=== PATIENT | male | born 1970 | race Caucasian/White ===

== ENCOUNTER → 2016-12-18 | Outpatient (CLI) | payer OTHER ==
[~2016-12-18] MED LIST: AGG PO; ALBUAER2 INH; CLIN1LOT5 TOP; CMD5 PO; COEN1CAP32 PO; DEXT30TA7 PO; FEXO1TAB46 PO; FLUT0.15 NAE; GLC/500 PO; MONT1TAB3 PO; OMEG10007 PO; POLY335019 PO; PRLSR20 PO; TAMS0.4C38 PO; WARF7.5T4 PO; ZNTT/150 PO; [UNRECOGNIZED DRUG - OTHER] PO; [UNRECOGNIZED DRUG - OTHER] PO
[2016-12-18 12:47] LABS: ESTIMATED AVERAGE GLUCOSE 128 mg/dl; HA1C FLAG Normal (Normal)
[2016-12-18 13:16] LABS: ALT/SGPT 44 U/L (12-78); BLOOD UREA NITROGEN 15 mg/dl (7-18); BUN/CREATININE RATIO 19.3 (10-20); CARBON DIOXIDE 28 mmol/L (21-32); CHLORIDE 105 mmol/L (98-107); CHOLESTEROL 199 mg/dl (0-200); GLUCOSE 105 mg/dl (70-99); POTASSIUM 3.8 mmol/L (3.5-5.1); SODIUM 141 mmol/L (136-145)
[2016-12-18 13:19] LABS: ALKALINE PHOSPHATASE 87 U/L (45-117); AST/SGOT 27 U/L (15-37); CHOLESTEROL/HDL RATIO 4.5; HDL CHOLESTEROL 44 mg/dl; LDL CHOLESTEROL CALCULATED 131 mg/dl; TRIGLYCERIDES 122 mg/dl (0-150); VERY LOW DENSITY LIPOPROT CALC 24 mg/dl
== END | disposition home or self-care (01) ==
LOC: C.LABPVFM 08:20
PROVIDERS: ATTEND Nurse Practitioner
DX: I10 Essential (primary) hypertension (principal); E78.5 Hyperlipidemia, unspecified; R73.01 Impaired fasting glucose

== ENCOUNTER → 2017-06-04 | Outpatient (CLI) | payer OTHER ==
[2017-06-04 13:31] LABS: CHOLESTEROL/HDL RATIO 6.4
== END | disposition home or self-care (01) ==
LOC: C.LABPVFM 07:56
PROVIDERS: ATTEND Internal Medicine Cardiovascular Disease
DX: E78.5 Hyperlipidemia, unspecified (principal)

== ENCOUNTER → 2017-06-06 | Outpatient (CLI) | payer OTHER ==
[2017-06-06 18:40] LABS: LYME DISEASE AB IGG NEG (NEG); LYME DISEASE AB IGM NEG (NEG)
== END | disposition home or self-care (01) ==
LOC: C.LABPVFM 11:34
PROVIDERS: ATTEND Internal Medicine Cardiovascular Disease
DX: R53.83 Other fatigue (principal)

== ENCOUNTER → 2017-11-28 | Outpatient (CLI) | payer OTHER ==
[2017-11-28 18:01] LABS: BLOOD UREA NITROGEN 17 mg/dl (7-18); CALCIUM 9.1 mg/dl (8.5-10.1); CARBON DIOXIDE 29 mmol/L (21-32); CREATININE 0.93 mg/dl (0.60-1.40); GLUCOSE 83 mg/dl (70-99); POTASSIUM 3.7 mmol/L (3.5-5.1); SODIUM 139 mmol/L (136-145)
[2017-11-29 07:07] LABS: HEMOGLOBIN A1C 6.1 % (4.5-5.6)
== END | disposition home or self-care (01) ==
LOC: C.LABPVFM 14:52
PROVIDERS: ATTEND Nurse Practitioner
DX: R73.01 Impaired fasting glucose (principal); I10 Essential (primary) hypertension

== ENCOUNTER → 2017-12-08 | Outpatient (CLI) | payer OTHER ==
--- NOTE | 2017-12-08 09:02 | DIAGNOSTIC IMAGING REPORT ---
(BARIUM SWALLOW) ESOPHAGUS CLINICAL HISTORY: T17.308A [id number] COMPARISON STUDY: None FLUOROSCOPY TIME: 1.4 minutes. FINDINGS: Patient initiated swallowing function well. No evidence for aspiration. The esophagus is normal in course and caliber. Mild gastroesophageal reflux. The patient Ingested the barium tablet easily with passed easily to the stomach. IMPRESSION: Mild gastroesophageal reflux. Otherwise normal exam. The above report was generated using voice recognition software. It may contain grammatical, syntax or spelling errors. Electronically signed by: Dennys Simon M.D. 12/08/2017 9:01 AM Dictated Date/Time: 12/08/2017 8:51 AM
== END | disposition home or self-care (01) ==
LOC: C.RAD 08:06
PROVIDERS: ATTEND Nurse Practitioner
DX: R13.10 Dysphagia, unspecified (principal); T17.308A Unspecified foreign body in larynx causing other injury, initial encounter; X58.XXXA Exposure to other specified factors, initial encounter

== ENCOUNTER → 2018-01-21 | Day surgery (SDC) | payer OTHER ==
[2018-01-14 08:54] VITALS: BMI 43.0
[~2018-01-21] VITALS: Ht 175.3 cm; Wt 131.8 kg
[~2018-01-21] MED LIST changes: -AGG PO; -ALBUAER2 INH; +ASPCH81X PO; +CHOL20007 PO; -CLIN1LOT5 TOP; -COEN1CAP32 PO; +COEN400C5 PO; -FEXO1TAB46 PO; +FEXO1TAB49 PO; +IBUP-1459 PO; +KETO2GEL2 EXT; +LIDOCAINE HCL 2% 2 ML VIAL (20MG/ML) ONE; +MIDAZOLAM HCL 1 MG/ML 2ML VIAL ONE; +MISCTAB78 PO; -MONT1TAB3 PO; +MRLP17X PO; +MULT-506 PO; +ONDANSETRON INJ 2 MG/ML 2 ML VIAL ONE; -POLY335019 PO; +PROPOFOL IV EMULSION 10 MG/ML 20 ML VIAL IV ONE; +RANI150T3 PO; +SNG10 PO; +SODIUM CHLORIDE 0.9% 500ML 500 ML IV ONE; +VNTHFA/IN INH; -ZNTT/150 PO; -[UNRECOGNIZED DRUG - OTHER] PO; -[UNRECOGNIZED DRUG - OTHER] PO
[2018-01-21 12:43] VITALS: Ht 175.3 cm; Wt 131.8 kg
--- NOTE | 2018-01-21 12:46 | Endo History and Physical ---
History & Physical Date of Service: Jan 21, 2018. Chief Complaint: Dysphagia Referring Physician: Stephenie Jalloh History of Present Illness 47 yo CM who presents for EGD secondary to dysphagia. Past Medical History Arthritis, Reflux, High Cholesterol, Sleep Apnea, Heart Disease, CVA/TIA Past Surgical History Hx Cardiac Surgery: No Hx Internal Defibrillator: No Hx Pacemaker: No Hx Abdominal Surgery: No Hx of Implantable Prosthesis: No Hx Post-Op Nausea and Vomiting: No Hx Cancer Surgery: No Hx Thoracic Surgery: No Hx Orthopedic: Yes (LEFT CTR, LEFT WRIST SX, LEFT KNEE ARTHROPLASTY, LEFT SHOULDER/BICEP REPAIR) Hx Urinary Tract Surgery: No Family History Colon CA Social History Smoking Status: Never Smoker Hx Substance Use: No Hx Alcohol Use: No Allergies Coded Allergies: NO KNOWN DRUG ALLERGIES (Verified Allergy, Unknown, ., 01/21/18) Zinc (Verified Allergy, Unknown, COLORS SKIN ON CONTACT, 01/21/18) Uncoded Allergies: MAPLE TREES (Allergy, Unknown, SNEEZING, 10/21/16) Current Medications Reported Home Medications Medications Dose Route/Sig Max Daily Dose Days Date Category Dose Instructions Xolegel (Ketoconazole (Topical)) 2 % Gel 1 Dose EXT DIRECTED PRN 01/14/18 Reported Aspirin Chewable (Aspirin) 81 Mg Chew 81 Mg PO BID 01/14/18 Reported Flonase Allergy Relief (Fluticasone Propionate (Nasal)) 50 Mcg/Act Spr 1 [place] SIENA DAILY PRN 01/14/18 Reported Glucophage (Metformin Hcl) 500 Mg Tab 500 Mg PO BID 01/14/18 Reported Prilosec (Omeprazole) 20 Mg Capcr 20 Mg PO BID 01/14/18 Reported Flomax (Tamsulosin Hcl) 0.4 Mg Cap 0.4 Mg PO HS 01/14/18 Reported Vitamin D3 (Cholecalciferol) 2,000 Unit Tab 1 Tab PO Q2D 01/14/18 Reported Ventolin Hfa (Albuterol) 200 Puffs/99616 Mcg Aers 2-4 Puffs INH Q6H PRN 01/14/18 Reported Montelukast Sodium (Montelukast Sod) 10 Mg Tab 1 Tab PO QPM 01/14/18 Reported Multivitamin (Multivitamins) Tab 1 Tab PO QAM 01/14/18 Reported Mucinex Dm (Dextromethorphan-Guaifenesin) 1 Tab Tab 1 Tab PO Q12 01/14/18 Reported Motrin (Ibuprofen) 400 Mg Tab 400 Mg PO TID PRN 01/14/18 Reported PRN Osteo Bi-Flex Advanced Do (Misc Natural Products) 1 Tab Tab 2 Tab PO QAM 01/14/18 Reported Coq10 (Coenzyme Q10 (Ubidecarenone)) 400 Mg Cap 1 Cap PO QAM 01/14/18 Reported Zantac (Ranitidine HCl) 150 Mg Tab 150 Mg PO BID 01/14/18 Reported Miralax (Polyethylene) 17 Gm Pow 1 Dose PO DAILY PRN 01/14/18 Reported Sindi Allergy (Fexofenadine Hcl) 180 Mg Tab 1 Tab PO QAM 01/14/18 Reported [place]-3 (Fish Oil) 1 Ea Cap 1 Cap PO BID 01/14/18 Reported Jantoven (Warfarin Sodium) 7.5 Mg Tab 7.5 Mg PO 2XWK 05/10/16 Reported FRIDAY AND FRI. Coumadin (Warfarin Sod) 5 Mg Tab 5 Mg PO 5XWK 05/10/16 Reported Vital Signs Weight (Kilograms): 131.82 Height (Feet): 5 Height (Inches): 9 Physical Exam General Appearance: WD/WN, no apparent distress Respiratory/Chest: Auscultation: breath sounds normal Cardiovascular: Heart Auscultation: RRR Abdomen: Bowel Sounds: normal Inspection & Palpation: soft, non-distended, no tenderness, guarding & rebound Assessment and Plan Assessment: 47 yo CM who presents for EGD secondary to dysphagia. Plan: Proceed with EGD.
--- NOTE | 2018-01-21 14:17 | Discharge Instructions ---
Endoscopy Patient Instructions Date / Procedure(s) Performed Jan 21, 2018. EGD Allergy Information Coded Allergies: NO KNOWN DRUG ALLERGIES (Verified Allergy, Unknown, ., 01/21/18) Zinc (Verified Allergy, Unknown, COLORS SKIN ON CONTACT, 01/21/18) Uncoded Allergies: MAPLE TREES (Allergy, Unknown, SNEEZING, 10/21/16) Discharge Date / Findings Jan 21, 2018. Normal EGD Medication Instructions Stopped Medication(s): COMMADIN 01/17/18 Restart Stopped Medication(s): OK to restart all medications today as prescribed Reported Home Medications Medications Dose Route/Sig Max Daily Dose Days Date Category Dose Instructions Xolegel (Ketoconazole (Topical)) 2 % Gel 1 Dose EXT DIRECTED PRN 01/14/18 Reported Aspirin Chewable (Aspirin) 81 Mg Chew 81 Mg PO BID 01/14/18 Reported Flonase Allergy Relief (Fluticasone Propionate (Nasal)) 50 Mcg/Act Spr 1 [place] SIENA DAILY PRN 01/14/18 Reported Glucophage (Metformin Hcl) 500 Mg Tab 500 Mg PO BID 01/14/18 Reported Prilosec (Omeprazole) 20 Mg Capcr 20 Mg PO BID 01/14/18 Reported Flomax (Tamsulosin Hcl) 0.4 Mg Cap 0.4 Mg PO HS 01/14/18 Reported Vitamin D3 (Cholecalciferol) 2,000 Unit Tab 1 Tab PO Q2D 01/14/18 Reported Ventolin Hfa (Albuterol) 200 Puffs/05764 Mcg Aers 2-4 Puffs INH Q6H PRN 01/14/18 Reported Montelukast Sodium (Montelukast Sod) 10 Mg Tab 1 Tab PO QPM 01/14/18 Reported Multivitamin (Multivitamins) Tab 1 Tab PO QAM 01/14/18 Reported Mucinex Dm (Dextromethorphan-Guaifenesin) 1 Tab Tab 1 Tab PO Q12 01/14/18 Reported Motrin (Ibuprofen) 400 Mg Tab 400 Mg PO TID PRN 01/14/18 Reported PRN Osteo Bi-Flex Advanced Do (Misc Natural Products) 1 Tab Tab 2 Tab PO QAM 01/14/18 Reported Coq10 (Coenzyme Q10 (Ubidecarenone)) 400 Mg Cap 1 Cap PO QAM 01/14/18 Reported Zantac (Ranitidine HCl) 150 Mg Tab 150 Mg PO BID 01/14/18 Reported Miralax (Polyethylene) 17 Gm Pow 1 Dose PO DAILY PRN 01/14/18 Reported Sindi Allergy (Fexofenadine Hcl) 180 Mg Tab 1 Tab PO QAM 01/14/18 Reported [place]-3 (Fish Oil) 1 Ea Cap 1 Cap PO BID 01/14/18 Reported Jantoven (Warfarin Sodium) 7.5 Mg Tab 7.5 Mg PO 2XWK 05/10/16 Reported FRIDAY AND FRI. Coumadin (Warfarin Sod) 5 Mg Tab 5 Mg PO 5XWK 05/10/16 Reported Provider Instructions Activity Restrictions - No exercising or heavy lifting for 24 hours. - Do not drink alcohol the day of the procedure. - Do not drive a car or operate machinery until the day after the procedure. - Do not make any important decisions or sign important papers in 24 hours after the procedure. Following Day: - Return to full activity which may include returning to work/school. Diet Start your diet with liquids and light foods (jello, soup, juice, toast). Then eat your usual diet if not nauseated. Treatment For Common After Affects For mild abdominal pain, bloating, or excessive gas: - Rest - Eat lightly - Lie on right side Follow-Up Information Follow-up with DR. WARREN as scheduled Anesthesia Information What You Should Know You have had a procedure that required some medicine to reduce anxiety and discomfort. This treatment is called moderate sedation. After receiving the treatment, you may be sleepy, but you will be able to breathe on your own. The effects of the treatment may last for several hours. Follow these instructions along with Activity/Diet recommendations noted above: * Do NOT do anything where dizziness or clumsiness would be dangerous. * Rest quietly at home today, then you can be up and about tomorrow. * Have a responsible person stay with you the rest of today. * You may have had an I.V. today. If so, you may take the dressing off later today. Recommendations Call your doctor if: * Trouble breathing * Continuous vomiting for more than 24 hours * Temperature above 101 degrees * Severe abdominal pain or bloating * Pain not relieved by pain medicine ordered * There is increased drainage or redness from any incision * A large amount of rectal bleeding greater than 2-3 tablespoons. (If you had a polyp/s removed or have hemorrhoids, a small amount of blood - from the rectum is to be expected.) * You have any unanswered questions or concerns. IN THE EVENT OF A SERIOUS EMERGENCY, GO TO THE NEAREST EMERGENCY ROOM Your discharge instructions were prepared by provider Jeovanny Quintero. Patient Instructions Signature Page Hussein Andrade Patient (or Guardian) Signature/Date: I have read and understand the instructions given to me by my caregivers. Caregiver/RN/Doctor Signature/Date: The above-named patient and/or guardian has received patient instructions on this date. + Original Patient Signature Page (only) stays with chart. Please make copy for patient.
[2018-01-21 14:45] VITALS: BP 131/79; PULSE 76; O2SAT 92
--- NOTE | 2018-01-21 14:54 | Anesthesiology Progress Note ---
Anesthesia Post Op Note Date & Time Jan 21, 2018 at 14:54 Vital Signs Pain Intensity: 0 Vital Signs Past 12 Hours Date Time Temp Pulse Resp B/P (MAP) Pulse Ox O2 Delivery O2 Flow Rate FiO2 01/21/18 14:45 76 20 131/79 (96) 92 Room Air 01/21/18 14:30 78 20 133/81 (98) 94 Room Air 01/21/18 14:15 75 20 106/77 (87) 98 Mask 5 01/21/18 13:02 36.9 86 20 150/84 (106) 92 Room Air Notes Mental Status: alert / awake / arousable, participated in evaluation Pt Amnestic to Procedure: Yes Nausea / Vomiting: adequately controlled Pain: adequately controlled Airway Patency, RR, SpO2: stable & adequate BP & HR: stable & adequate Hydration State: stable & adequate Anesthetic Complications: no major complications apparent
--- NOTE | 2018-01-21 14:55 | GI REPORT ---
Procedure Date: 01/21/2018 1:24 PM Procedure: Upper GI endoscopy Indications: Dysphagia Medicines: Monitored Anesthesia Care Complications: No immediate complications. Estimated Blood Loss: Estimated blood loss: none. Procedure: Pre-Anesthesia Assessment: - Prior to the procedure, a History and Physical was performed, and patient medications and allergies were reviewed. The patient's tolerance of previous anesthesia was also reviewed. The risks and benefits of the procedure and the sedation options and risks were discussed with the patient. All questions were answered, and informed consent was obtained. Prior Anticoagulants: The patient last took aspirin 1 day and Coumadin (warfarin) 4 days prior to the procedure. ASA Grade Assessment: III - A patient with severe systemic disease. After reviewing the risks and benefits, the patient was deemed in satisfactory condition to undergo the procedure. After obtaining informed consent, the endoscope was passed under direct vision. Throughout the procedure, the patient's blood pressure, pulse, and oxygen saturations were monitored continuously. The scope was introduced through the mouth, and advanced to the second part of duodenum. The upper GI endoscopy was accomplished without difficulty. The patient tolerated the procedure well. Findings: The esophagus was normal. The stomach was normal. The examined duodenum was normal. Impression: - Normal esophagus. - Normal stomach. - Normal examined duodenum. - No specimens collected. Recommendation: - Resume previous diet. - Continue present medications. - No findings on this exam to explain patient's symptom of dysphagia. - Return to primary care physician as previously scheduled. Jeovanny Quintero, 01/21/2018 2:55:43 PM This report has been signed electronically. Note Initiated On: 01/21/2018 1:24 PM I attest to the content of the Intraoperative Record and orders documented therein, exceptions below
== END | disposition home or self-care (01) ==
LOC: C.GI 12:31
PROVIDERS: ATTEND Internal Medicine
DX: R13.10 Dysphagia, unspecified (principal); J45.909 Unspecified asthma, uncomplicated; E11.9 Type 2 diabetes mellitus without complications; I48.91 Unspecified atrial fibrillation; G47.33 Obstructive sleep apnea (adult) (pediatric); M19.90 Unspecified osteoarthritis, unspecified site; Z79.82 Long term (current) use of aspirin; Z79.01 Long term (current) use of anticoagulants; Z96.652 Presence of left artificial knee joint; Z80.0 Family history of malignant neoplasm of digestive organs

== ENCOUNTER → 2018-02-23 | Outpatient (CLI) | payer OTHER ==
[~2018-02-23] MED LIST changes: -LIDOCAINE HCL 2% 2 ML VIAL (20MG/ML) ONE; +METO50TA8 PO; -MIDAZOLAM HCL 1 MG/ML 2ML VIAL ONE; -ONDANSETRON INJ 2 MG/ML 2 ML VIAL ONE; -PROPOFOL IV EMULSION 10 MG/ML 20 ML VIAL IV ONE; -SODIUM CHLORIDE 0.9% 500ML 500 ML IV ONE
== END | disposition home or self-care (01) ==
LOC: C.LABSPEC 17:28
PROVIDERS: ATTEND Urology
DX: N20.0 Calculus of kidney (principal)

== ENCOUNTER → 2018-03-06 | Outpatient (CLI) | payer OTHER ==
[~2018-03-06] MED LIST changes: +HYDR-5688 PO
[2018-03-06 13:29] LABS: ALBUMIN 3.8 gm/dl (3.4-5.0); ALKALINE PHOSPHATASE 93 U/L (45-117); ALT/SGPT 51 U/L (12-78); AST/SGOT 29 U/L (15-37); BLOOD UREA NITROGEN 18 mg/dl (7-18); CALCIUM 9.5 mg/dl (8.5-10.1); CARBON DIOXIDE 28 mmol/L (21-32); CREATININE 0.85 mg/dl (0.60-1.40); GLUCOSE 99 mg/dl (70-99); POTASSIUM 3.8 mmol/L (3.5-5.1); SODIUM 139 mmol/L (136-145); TOTAL PROTEIN 7.9 gm/dl (6.4-8.2)
== END | disposition home or self-care (01) ==
LOC: C.LABPVFM 08:49
PROVIDERS: ATTEND Urology
DX: N20.0 Calculus of kidney (principal); R30.0 Dysuria; R31.0 Gross hematuria

== ENCOUNTER → 2018-03-12 | Day surgery (SDC) | payer OTHER ==
[2018-02-27 08:03] VITALS: BMI 43.0
[2018-02-27 09:00] VITALS: Ht 175.3 cm; Wt 136.8 kg
[2018-02-27 11:01] LABS: BASO % 0.5 %; BASO ABS # 0.04 K/uL (0-0.2); EOS % 2.3 %; EOS ABS # 0.17 K/uL (0-0.5); HEMATOCRIT 43.9 % (42-52); HEMOGLOBIN 14.8 g/dL (14.0-18.0); IG# 0.02 K/uL (0.00-0.02); LYMPH % 23.9 %; LYMPH ABS # 1.79 K/uL (1.2-3.4); MEAN CELL VOLUME 85.1 fL (80-100); MEAN CORPUSCULAR HEMOGLOBIN 28.7 pg (25-34); MEAN CORPUSCULAR HGB CONC 33.7 g/dl (32-36); MEAN PLATELET VOLUME 9.8 fL (7.4-10.4); MONO % 9.9 %; MONO ABS # 0.74 K/uL (0.11-0.59); NEUT % 63.1 %; NEUT ABS # 4.74 K/uL (1.4-6.5); PLATELET COUNT 217 K/uL (130-400); RED CELL DISTRIBUTION WIDTH CV 14.1 % (11.5-14.5); RED CELL DISTRIBUTION WIDTH SD 43.5 fL (36.4-46.3)
[2018-02-27 11:08] LABS: CALCIUM 9.1 mg/dl (8.5-10.1); CREATININE 0.85 mg/dl (0.60-1.40); POTASSIUM 3.9 mmol/L (3.5-5.1)
[~2018-03-12] VITALS: Ht 175.3 cm; Wt 136.8 kg
[~2018-03-12] MED LIST changes: +ATROPINE SULFATE 0.1 MG/ML 5ML SYR IV PRN; +CEFAZOLIN 3000MG IV PUSH 22.5 ML IV SCH; +DEXAMETHASONE SOD INJ 4 MG/ML VIAL ONE; +EpHEDrine SULFATE INJ 50 MG/ML AMP IV PRN; +EpINEphrine INJ 1MG/ML AMP 1 MG/ML AMP ONE; +FENTANYL CITRATE INJ 50 MCG/1 ML 2 ML VIAL IV PRN; +FENTANYL CITRATE INJ 50 MCG/1 ML 2 ML VIAL ONE; +HYDROCODONE/ACETAMIN 5/325MG TAB PO PRN; +KETOROLAC TROMETHAMINE 30 MG/ML VIAL ONE; +LACTATED RINGER'S 1000ML 1,000 ML IV SCH; +LIDOCAINE HCL 2% 2 ML VIAL (20MG/ML) ONE; +MIDAZOLAM HCL 1 MG/ML 2ML VIAL ONE; +ONDANSETRON INJ 2 MG/ML 2 ML VIAL IV PRN; +ONDANSETRON INJ 2 MG/ML 2 ML VIAL ONE; +PROPOFOL IV EMULSION 10 MG/ML 20 ML VIAL IV ONE; +ROPIVACAINE 0.5% 5 MG/ML 30 ML VIAL ONE; +SODIUM CHLORIDE 0.9% 1000ML 1,000 ML IV SCH
--- NOTE | 2018-03-12 09:18 | History & Physical Bridge - [place] ---
H&P Re-Evaluation Bridge Note: I have examined the patient, reviewed the History & Physical and in the interval since the performance of the History & Physical I have noted the following changes of clinical significance: No changes noted
[2018-03-12 10:16] LABS: INR 1.1 (0.9-1.1)
--- NOTE | 2018-03-12 12:08 | [facility] Post Operative Brief Note ---
Immediate Operative Summary Operative Date Mar 12, 2018. Pre-Operative Diagnosis Left Knee Acute Medial Meniscal Tear Post-Operative Diagnosis same as pre op with chondromalacia Procedure(s) Performed Left Knee Arthroscopy With Partial Medial Meniscectomy, Chondroplasty Surgeon Dr Velazquez Business Process Expert Surgeon(s) RACHEL Camejo Estimated Blood Loss 5ML Findings Consistent with Post-Op Diagnosis Specimens none Anesthesia Type General Complication(s) none Disposition Disposition: Recovery Room / PACU
--- NOTE | 2018-03-12 12:15 | Discharge Instructions-SurgCtr ---
Discharge Instructions Date of Service Mar 12, 2018. Visit Reason for Visit: Left Knee Acute Medial Meniscal Tear Discharge Discharge Diagnosis / Problem: SAME ABOVE Discharge Goals Goal(s): Decrease discomfort, Improve function Medications Stopped Medications Name(s): Aspirin stopped 7 days ago, coumadin stopped 5 days ago, fish oil stopped 7 days ago, metformin stopped 2 days ago. Restart Stopped Medication(s): MAY RESTART 03/12/2018 Activity Recommendations Activity Limitations: as noted below Lifting Limitations: gradually increase as tolerated Exercise/Sports Limitations: gradually increase as tolerated Shower/Bathe: tomorrow Anesthesia . Post Anesthesia Instructions: If you have had General Anesthesia or IV Sedation: * Do not drive today. * Resume driving when surgeon permits. * Do not make important decisions or sign legal documents today. * Call surgeon for: 1. Temperature elevations greater than 101 degrees F. 2. Uncontrollable pain. 3. Excessive bleeding. 4. Persistent nausea and vomiting. 5. Medication intolerance (nausea, vomiting or rash). * For nausea and vomiting use only clear liquids such as: tea, soda, bouillon until nausea subsides, then gradually increase diet as tolerated. * If you have any concerns or questions, call your surgeon's office. If physician is unavailable and it is an emergency, call 911 or go to the nearest emergency room. . Instructions / Follow-Up Instructions / Follow-Up MEDICATIONS: * Resume previous medications unless instructed otherwise by your surgeon. * Always take pain medication on a full stomach or with food to avoid upset stomach. * Do not drink alcohol or drive while taking narcotics. * Ibuprofen or Tylenol may be taken if narcotic not needed. SPECIAL CARE INSTRUCTIONS: __ None _X_ Keep extremity elevated and iced x 48 hours; apply ice 20-30 minutes 8-10 times/day. May remove at night. _X_ Crutches _X_ May discard when able __ Brace/Post-op shoe __ 24 hrs/day __ Remove at night _X_ Dressing __ Maintain until seen in office, may shower with plastic over site _X_ Remove dressings in 24-48 hours and then may shower _X_ Cover incisions with band-aids after showering __ Do not remove steri-strips Call physician if chills or temperature rises above 102 degrees or pain unrelieved by prescribed pain medications. Office [phone] Diet Recommendations Home Diet: no limitations Fluid Restriction: None Procedures Procedures Performed: Left Knee Arthroscopy With Partial Medial Meniscectomy, Chondroplasty Pending Studies Studies pending at discharge: no Work Instructions Return To Work: after follow-up Medical Emergencies . Who to Call and When: Medical Emergencies: If at any time you feel your situation is an emergency, please call 911 immediately. . Non-Emergent Contact Non-Emergency issues call your: Primary Care Provider Call Non-Emergent contact if: you have a fever, temperature is above 101.5 . . "Provider Documentation" section prepared by Bernard Joe. .
--- NOTE | 2018-03-12 12:37 | OPERATIVE REPORT ---
DATE OF OPERATION: 03/12/2018 PREOPERATIVE DIAGNOSIS: Medial meniscal tear of the left knee. 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 PROCEDURE: Left knee arthroscopy with chondroplasty and partial medial meniscectomy. SURGEON: Dr. Franco Velazquez PAVING BED MAKER: Bernard Joe PA-C, whose assistance was necessary for positioning of the leg and helping with closure. ANESTHESIA: General. COMPLICATIONS: None. CONDITION: Stable to PACU. INDICATIONS: Hussein is a 47-year-old male who had his knee scoped by Dr. Stringer over 10 years ago. He was doing fine until he had a disability exam back in August. He stated the examiner twisted his leg and has been having medial-sided knee pain since. MRI showed a medial meniscus tear. After failing conservative treatment, he elected to undergo arthroscopy. OPERATION AND FINDINGS: On 03/12/2018, he arrived at [facility] for the above procedure. He was seen in the preoperative holding area and the operative extremity was identified and signed. He was given a preoperative antibiotic, taken back to the operating room, laid on the table in supine position, and put under general anesthesia. The left knee was then prepped and draped in sterile fashion. Time-out was done. The patient's operative extremity was properly identified. A scope was introduced in the lateral parapatellar portal. Diagnostic arthroscopy showed no loose bodies in suprapatellar pouch. There was no cartilage damage within the trochlea or the patella. The scope was brought into the medial compartment and a medial parapatellar portal was made under direct visualization. There was some blunting of the meniscus from previous meniscectomy, but there was a new tear of the mid body of the medial meniscus. A shaver was used to debride the unstable portions of the tear. The meniscus then had stable margins. A probe was used to ensure that I was not missing any hidden tears. Multiple pictures were taken. There was some chondromalacia of the lateral aspect of the distal medial femoral condyle. This was probed and then a shaver was used to do a minimal chondroplasty to ensure that the cartilage was stable. The scope was brought into the trochlea. ACL and PCL were intact. The scope was brought into lateral compartment. There was no meniscus or cartilage damage laterally. The knee was then brought out into full extension and minimal synovectomy was done in the suprapatellar pouch. The scope was then placed in the medial parapatellar portal. Repeat diagnostic arthroscopy showed no additional pathology. Multiple pictures were taken. The knee was then irrigated and drained. The arthroscopic instruments were removed. Portal sites were closed with 3-0 nylon. The knee was then injected with 30 mL of Naropin with epinephrine and Toradol. He was then placed in a soft compressive dressing, extubated, transferred to a litter, and taken to the postanesthesia care in stable condition. He tolerated the procedure well. I attest to the content of the Intraoperative Record and any orders documented therein. Any exception s are noted below.
[2018-03-12 13:15] VITALS: TEMP 36.4
[2018-03-12 13:54] VITALS: BP 109/68; PULSE 65; O2SAT 95
--- NOTE | 2018-03-12 14:17 | Anesthesia Progress Nt - [facility] ---
Anesthesia Post Op Note Date & Time Mar 12, 2018 at 14:17 Vital Signs Pain Intensity: 2 Vital Signs Past 12 Hours Date Time Temp Pulse Resp B/P (MAP) Pulse Ox O2 Delivery O2 Flow Rate FiO2 03/12/18 13:54 65 20 109/68 (82) 95 Room Air 03/12/18 13:15 36.4 57 20 126/78 (94) 95 Room Air 03/12/18 12:55 36.3 94 Room Air 03/12/18 12:15 36.4 88 16 146/104 93 Mask 6 03/12/18 09:49 37.0 61 18 142/84 (103) 94 Room Air Notes Mental Status: alert / awake / arousable, participated in evaluation Pt Amnestic to Procedure: Yes Nausea / Vomiting: adequately controlled Pain: adequately controlled Airway Patency, RR, SpO2: stable & adequate BP & HR: stable & adequate Hydration State: stable & adequate Anesthetic Complications: no major complications apparent
== END | disposition home or self-care (01) ==
LOC: X.SURG 09:13
PROVIDERS: ATTEND Orthopaedic Surgery
DX: S83.241A Other tear of medial meniscus, current injury, right knee, initial encounter (principal); E11.9 Type 2 diabetes mellitus without complications; E78.00 Pure hypercholesterolemia, unspecified; I10 Essential (primary) hypertension; G47.33 Obstructive sleep apnea (adult) (pediatric); J45.909 Unspecified asthma, uncomplicated; I48.91 Unspecified atrial fibrillation; E66.01 Morbid (severe) obesity due to excess calories; M19.90 Unspecified osteoarthritis, unspecified site; N40.0 Benign prostatic hyperplasia without lower urinary tract symptoms; K21.9 Gastro-esophageal reflux disease without esophagitis; Z82.49 Family history of ischemic heart disease and other diseases of the circulatory system; Z83.3 Family history of diabetes mellitus; Z80.42 Family history of malignant neoplasm of prostate; Z80.0 Family history of malignant neoplasm of digestive organs; Z83.6 Family history of other diseases of the respiratory system; Z79.82 Long term (current) use of aspirin; Z79.899 Other long term (current) drug therapy; Z79.84 Long term (current) use of oral hypoglycemic drugs; Z98.42 Cataract extraction status, left eye; Z90.49 Acquired absence of other specified parts of digestive tract; Z86.73 Personal history of transient ischemic attack (TIA), and cerebral infarction without residual deficits; X50.0XXA Overexertion from strenuous movement or load, initial encounter

== ENCOUNTER → 2018-03-30 | Outpatient (CLI) | payer OTHER ==
[~2018-03-30] MED LIST changes: -ATROPINE SULFATE 0.1 MG/ML 5ML SYR IV PRN; -CEFAZOLIN 3000MG IV PUSH 22.5 ML IV SCH; -DEXAMETHASONE SOD INJ 4 MG/ML VIAL ONE; -EpHEDrine SULFATE INJ 50 MG/ML AMP IV PRN; -EpINEphrine INJ 1MG/ML AMP 1 MG/ML AMP ONE; -FENTANYL CITRATE INJ 50 MCG/1 ML 2 ML VIAL IV PRN; -FENTANYL CITRATE INJ 50 MCG/1 ML 2 ML VIAL ONE; -HYDROCODONE/ACETAMIN 5/325MG TAB PO PRN; -KETOROLAC TROMETHAMINE 30 MG/ML VIAL ONE; -LACTATED RINGER'S 1000ML 1,000 ML IV SCH; -LIDOCAINE HCL 2% 2 ML VIAL (20MG/ML) ONE; -MIDAZOLAM HCL 1 MG/ML 2ML VIAL ONE; -ONDANSETRON INJ 2 MG/ML 2 ML VIAL IV PRN; -ONDANSETRON INJ 2 MG/ML 2 ML VIAL ONE; +OPTIRAY 320 IV PRN; -PROPOFOL IV EMULSION 10 MG/ML 20 ML VIAL IV ONE; -ROPIVACAINE 0.5% 5 MG/ML 30 ML VIAL ONE; -SODIUM CHLORIDE 0.9% 1000ML 1,000 ML IV SCH
--- NOTE | 2018-03-30 09:51 | DIAGNOSTIC IMAGING REPORT ---
ABDOMEN AND PELVIS CT WITH AND WITHOUT IV CONTRAST, UROGRAM PROTOCOL CT DOSE: 2362.06 mGycm HISTORY: DYSURIA, GROSS HEMATURIA, NEPHROLITHIASIS TECHNIQUE: Multiaxial CT images of the abdomen and pelvis were performed both before and after the use of intravenous contrast to evaluate the urinary system. Maximal intensity projection images were performed at the workstation by the radiologist. A dose lowering technique was utilized adhering to the principles of ALARA. COMPARISON STUDY: None. FINDINGS: There are 2 punctate stones within the lower pole of the left kidney with the largest measuring 3 mm. No right renal calculi. No ureteral calculi. No hydronephrosis. No suspicious filling defects seen within the opacified bilateral renal collecting systems, ureters, or bladder. Of note, the distal left ureter is not opacified but appears to be normal in caliber. There are few hypodense lesions within the kidneys with the larger on the left measuring 12 mm. These appear to represent cysts. The lung bases are clear. No suspicious lytic or blastic osseous lesions. Small fat-containing left inguinal hernia. Tiny fat-containing umbilical hernia. Colonic diverticulosis. No bowel wall thickening or obstruction. Normal appendix. Duplicated IVC. No retroperitoneal lymphadenopathy. Hepatic steatosis. The gallbladder, spleen, adrenal glands, and pancreas are unremarkable. IMPRESSION: 1. Left-sided nephrolithiasis. No ureteral stones. No hydronephrosis. 2. No suspicious filling defects seen within the opacified bilateral renal collecting systems, ureters, or bladder. 3. Hepatic steatosis. 4. Duplicated IVC. 5. Small bilateral renal hypodense lesions. These likely represent cysts. 6. Additional findings as described above. Electronically signed by: Walter Martinez M.D. 03/30/2018 9:50 AM Dictated Date/Time: 03/30/2018 9:36 AM
== END | disposition home or self-care (01) ==
LOC: C.CTS 08:22
PROVIDERS: ATTEND Urology
DX: N20.0 Calculus of kidney (principal); R31.0 Gross hematuria; R30.0 Dysuria; K76.0 Fatty (change of) liver, not elsewhere classified; Q26.8 Other congenital malformations of great veins; N28.9 Disorder of kidney and ureter, unspecified

== ENCOUNTER → 2018-04-01 | Outpatient (CLI) | payer OTHER ==
[~2018-04-01] MED LIST changes: -OPTIRAY 320 IV PRN
[2018-04-01 09:56] LABS: BLOOD UREA NITROGEN 14 mg/dl (7-18); CREATININE 0.85 mg/dl (0.60-1.40)
== END | disposition home or self-care (01) ==
LOC: C.LAB 07:53
PROVIDERS: ATTEND Urology
DX: R31.0 Gross hematuria (principal)

== ENCOUNTER → 2018-07-03 | Outpatient (CLI) | payer OTHER ==
[~2018-07-03] MED LIST changes: +ACET-1256 PO; +DEXT1TAB50 PO; -DEXT30TA7 PO; -HYDR-5688 PO; -IBUP-1459 PO
== END | disposition home or self-care (01) ==
LOC: C.LABPVFM 10:40
PROVIDERS: ATTEND Internal Medicine Cardiovascular Disease
DX: I48.91 Unspecified atrial fibrillation (principal)